=== PATIENT | female | born 1945 | race Caucasian/White ===

== ENCOUNTER 2020-02-21 17:14 | Emergency (ER) | payer OTHER ==
[~2020-02-21] VITALS: Ht 147.3 cm; Wt 87.5 kg
[2020-02-21 17:23] VITALS: BP_SYST 143
[2020-02-21 18:37] VITALS: BP_SYST 142
== END 2020-02-21 18:37 | disposition home or self-care (01) ==
LOC: SED 17:14
DX: S60.222A Contusion of left hand, initial encounter (principal); Z88.1 Allergy status to other antibiotic agents; W18.39XA Other fall on same level, initial encounter; Y93.89 Activity, other specified; Y92.89 Other specified places as the place of occurrence of the external cause; Y99.8 Other external cause status
CPT/HCPCS: 99283

== ENCOUNTER 2022-05-09 14:01 | Emergency (ER) | payer OTHER ==
[~2022-05-09] VITALS: Ht 149.9 cm; Wt 82.6 kg
[2022-05-09 14:02] VITALS: BP_SYST 165
--- NOTE | 2022-05-09 14:02 | NUR ---
BROUGHT BACK TO BED #2 VIA WHEELCHAIR, PLACED IN BED AND TRIAGED. REPORT GIVEN TO FRED
--- NOTE | 2022-05-09 14:07 | NUR ---
Placed in room 02 . Placed on pvc monitor, blood pressure machine and pulse oximeter. To gown for exam. Side rails up. Report given to Kumar VELASCO.
--- NOTE | 2022-05-09 14:15 | NUR ---
PT BIB DAUGHTER, AWAKE AND ALERT AO X4. PT C/O PALLIPATION AND PAIN TO L ANKLE, PAIN 08/31. PT DENIES N/V. PERRLA. VSS.
--- NOTE | 2022-05-09 14:20 | NUR ---
MD DR OLIVER AT BEDSIDE
[2022-05-09] MEDS ORDERED: KETOROLAC TROMETHAMINE 60 MG/2 ML VIAL IM ONE (14:30)
[2022-05-09] MEDS ORDERED: LORazepam 1 MG TABLET PO ONE (14:45)
[2022-05-09 15:47] LABS: ANION GAP 5 (5-15); CHLORIDE 103 mmol/L (98-107); CREATININE 0.67 mg/dL (0.55-1.30); GLUCOSE 227 mg/dL (70-99); POTASSIUM 3.6 mmol/L (3.5-5.1); UREA NITROGEN, BLOOD 18 mg/dL (8-21)
[2022-05-09 15:57] LABS: BASOPHILS % (AUTO) 0.7 % (0.0-2.0); EOSINOPHILS # (AUTO) 0.1 K/uL (0.0-0.4); EOSINOPHILS % (AUTO) 1.1 % (0.0-4.0); HEMOGLOBIN 13.3 g/dL (12.0-16.0); LYMPHOCYTES # (AUTO) 1.8 K/uL (1.0-5.5); LYMPHOCYTES % (AUTO) 24.9 % (20.5-51.5); MEAN CORPUSCULAR HEMOGLOBIN 27 pg (27-31); MEAN CORPUSCULAR HGB CONC 33 % (32-36); MEAN CORPUSCULAR VOLUME 81 fL (79.0-98.0); MONOCYTES # (AUTO) 0.5 K/uL (0.0-1.0); MONOCYTES % (AUTO) 6.5 % (1.7-9.3); NEUTROPHILS # (AUTO) 4.9 K/uL (1.8-7.7); NEUTROPHILS % (AUTO) 66.8 % (40.0-70.0); PLATELET COUNT (AUTO) 280 K/uL (130-430); RED BLOOD CELL COUNT(AUTO) 4.96 MIL/uL (4.2-6.2); RED CELL DISTRIBUTION WIDTH 15.9 % (9.0-15.0); WHITE BLOOD COUNT (AUTO) 7.4 K/uL (4.8-10.8)
[2022-05-09 15:59] LABS: ALANINE AMINOTRANSFERASE 25 U/L (12-78); ALBUMIN 3.7 g/dL (3.4-4.8); ASPARTATE AMINOTRANSFERASE 18 U/L (10-37); C-REACTIVE PROTEIN QUANT 0.5 mg/dL (0-0.5); FREE T4 (FREE THYROXINE) 1.3 ng/dL (0.6-1.6); TOTAL BILIRUBIN 0.3 mg/dL (0.0-1.0)
[2022-05-09 16:34] LABS: ERYTHROCYTE SEDIMENTATION RATE 15 MM/HR (0-20)
[2022-05-09 16:35] LABS: URIC ACID 6.7 mg/dL (2.4-7.0)
[2022-05-09 16:36] LABS: CKMB RELATIVE INDEX 0.9 (0.0-2.9)
[2022-05-09] MEDS ORDERED: IBUP-1969 PO (17:12)
[2022-05-09] MEDS ORDERED: HYDR-3917 PO (17:12)
[2022-05-09 17:33] VITALS: BP_SYST 165
--- NOTE | 2022-05-09 17:34 | NUR ---
Patient given written and verbal discharge instructions and verbalizes understanding. ER MD discussed with patient the results and treatment provided. Patient in stable condition. ID arm band removed. Rx of [place] and Ibuprofen given. Patient educated on pain management and to follow up with PMD. Pain Scale 2/10. Opportunity for questions provided and answered. Medication side effect fact sheet provided.
== END 2022-05-09 17:33 | disposition home or self-care (01) ==
LOC: SED 14:01
DX: M13.872 Other specified arthritis, left ankle and foot (principal); R00.2 Palpitations; E11.9 Type 2 diabetes mellitus without complications; Z88.1 Allergy status to other antibiotic agents; Z79.899 Other long term (current) drug therapy
CPT/HCPCS: 99285; 71045; 80053; 82550; 82553; 84439; 84443; 84550; 85025; 85610; 85651; 85730; 86140; 84484; 36415; 93005; 73610; 96372; J1885

== ENCOUNTER 2024-01-02 05:13 | Emergency (ER) | payer OTHER ==
[~2024-01-02] VITALS: Ht 147.3 cm; Wt 83.5 kg
[~2024-01-02 05:13] MED LIST: HYDR-3917 PO; IBUP-1969 PO
[2024-01-02 05:37] VITALS: BP_SYST 153; PULSE 74; RESP 20; TEMP 97.2; O2SAT 97
[2024-01-02 06:13] LABS: BILIRUBIN,URINE NEGATIVE (NEGATIVE); BLOOD, URINE NEGATIVE (NEGATIVE); COLOR,URINE YELLOW (YELLOW); GLUCOSE,URINE NEGATIVE (NEGATIVE); KETONES,URINE NEGATIVE (NEGATIVE); LEUKOCYTE ESTERASE ,URINE 2+ (NEGATIVE); NITRITE, URINE NEGATIVE (NEGATIVE); PROTEIN URINE NEGATIVE (NEGATIVE); UROBILINOGEN,URINE 0.2 (0.2-1.0)
[2024-01-02] MEDS: KETOROLAC TROMETHAMINE 30 MG VIAL IM ONE (06:23)
[2024-01-02 06:26] LABS: CLARITY/URINE SLIGHTLY CLOUDY (CLEAR)
[2024-01-02 06:26] LABS: BASOPHILS # (AUTO) 0.1 K/uL (0.0-0.2); BASOPHILS % (AUTO) 0.8 % (0.0-2.0); EOSINOPHILS # (AUTO) 0.1 K/uL (0.0-0.4); EOSINOPHILS % (AUTO) 1.1 % (0.0-4.0); HEMATOCRIT 38.2 % (36-48); HEMOGLOBIN 12.7 g/dL (12.0-16.0); LYMPHOCYTES # (AUTO) 1.9 K/uL (1.0-5.5); LYMPHOCYTES % (AUTO) 27.7 % (20.5-51.5); MEAN CORPUSCULAR HEMOGLOBIN 28 pg (27-31); MEAN CORPUSCULAR HGB CONC 33 % (32-36); MEAN CORPUSCULAR VOLUME 83 fL (79.0-98.0); MONOCYTES # (AUTO) 0.7 K/uL (0.0-1.0); MONOCYTES % (AUTO) 9.4 % (1.7-9.3); NEUTROPHILS # (AUTO) 4.2 K/uL (1.8-7.7); PLATELET COUNT (AUTO) 270 K/uL (130-430); RED BLOOD CELL COUNT(AUTO) 4.63 MIL/uL (4.2-6.2); RED CELL DISTRIBUTION WIDTH 15.1 % (9.0-15.0); WHITE BLOOD COUNT (AUTO) 6.9 K/uL (4.8-10.8)
[2024-01-02 06:27] LABS: BACTERIA,URINE FEW /HPF (None Seen); RBC,URINE 0-3 /HPF (0-3)
[2024-01-02 06:45] LABS: ANION GAP 6 (5-15); CALCIUM 9.1 mg/dL (8.4-11.0); CARBON DIOXIDE 32 mmol/L (23-29); CHLORIDE 103 mmol/L (98-107); CREATININE 0.57 mg/dL (0.55-1.30); GLUCOSE 76 mg/dL (74-106); LIPASE 35 U/L (16-77); POTASSIUM 3.7 mmol/L (3.5-5.1); SODIUM SERUM 141 mmol/L (136-145); UREA NITROGEN, BLOOD 21 mg/dL (8-21)
[2024-01-02] MEDS ORDERED: NITR-85 PO (09:25)
[2024-01-02] MEDS ORDERED: IBUP-2018 PO (09:25)
[2024-01-02 09:56] VITALS: BP_SYST 115; PULSE 74; RESP 18; TEMP 97.4; O2SAT 100
== END 2024-01-02 09:54 | disposition home or self-care (01) ==
LOC: SED 05:13
DX: N39.0 Urinary tract infection, site not specified (principal); R10.31 Right lower quadrant pain; E11.9 Type 2 diabetes mellitus without complications; Z88.1 Allergy status to other antibiotic agents; Z79.899 Other long term (current) drug therapy; Z79.2 Long term (current) use of antibiotics
CPT/HCPCS: 99285; 74176; 80048; 81001; 83690; 85025; 87086; 36415; 96372; J1885; 81000; 81015